=== PATIENT | male | born 1990 | race Hispanic/Latino ===

== ENCOUNTER 2018-03-05 04:11 | Inpatient (IN) | payer OTHER, SELFPAY ==
[2018-03-05] MEDS ORDERED: diphenhydrAMINE 50 MG/ML VIAL ONE (04:15)
[2018-03-05] MEDS ORDERED: Lorazepam 2 MG/ML VIAL SLOW IVP PRN (04:21)
[2018-03-05] MEDS ORDERED: Propofol BOLUS 1,000 MG/100 ML VIAL IV PRN (04:21)
[2018-03-05] MEDS ORDERED: DISCONTINUE PREVIOUS NARCOTIC PAIN MEDICATIONS AND BENZODIAZEPINES FS SCH (04:21)
[2018-03-05] MEDS ORDERED: fentaNYL Citrate/PF 2,000 MCG in Sodium Chloride 0.9% 60 ML IV SCH (04:21)
[2018-03-05] MEDS ORDERED: Fentanyl BOLUS 250 ML IVPB PRN (04:21)
[2018-03-05] MEDS ORDERED: Propofol 1,000 MG/100 ML VIAL IV PRN (04:21)
[2018-03-05 04:49] LABS: #Lymphocytes 1.1 thou/uL (1.20-3.40); #Monocytes 1.3 thou/uL (0.11-0.59); #Neutrophils 14.4 thou/uL (1.40-6.50); %Basophils 0.1 % (0.0-1.0); %Eosinophils 0.2 % (0.0-10.0); %Lymphocytes 6.7 % (21.0-51.0); %Monocytes 7.8 % (0.0-10.0); %Neutrophils 85.2 % (42.0-75.0); Hemoglobin 16.2 g/dL (14.0-18.0); Mean Corpuscular HGB CONC 34.5 g/dL (32.0-36.0); Mean Corpuscular Hemoglobin 31.4 pg (27.0-31.0); Mean Corpuscular Volume 91.1 fL (78.0-98.0); Mean Platelet Volume 6.9 fL (7.4-10.4); Platelet Count 218 thou/uL (130-400); RBC Distribution Width 11.8 % (11.5-14.5); Red Blood Cell (RBC) Count 5.16 mill/uL (4.70-6.10); White Blood Cell (WBC) Count 16.9 thou/uL (4.8-10.8)
[2018-03-05 04:53] LABS: ALT (SGPT) 178 U/L (8-55); AST (SGOT) 206 U/L (5-34); Albumin 4.7 g/dL (3.5-5.0); Alcohol 125 mg/dL (Less than 10); Alkaline Phosphatase 112 U/L (40-150); Anion Gap 17 mmol/L (10-20); BUN (Urea Nitrogen) 10 mg/dL (8.9-20.6); Bilirubin, Total 2.2 mg/dL (0.2-1.2); Calc. Creatinine Clearance 0 mL/min (70-130); Calcium 8.9 mg/dL (7.8-10.44); Carbon Dioxide 17 mmol/L (22-29); Chloride 105 mmol/L (98-107); Estimated GFR-MDRD 87; Globulin 2.5 g/dL (2.4-3.5); Glucose 126 mg/dL (70-105); INR-International Normal Ratio 1.1; Lipase 23 U/L (8-78); PTT 26.2 SEC (22.9-36.1); Potassium 3.4 mmol/L (3.5-5.1); Protein, Total 7.2 g/dL (6.0-8.3); Prothrombin Time 14.3 SEC (12.0-14.7); Sodium 136 mmol/L (136-145)
[2018-03-05 05:07] LABS: Actual Bicarbonate (HCO3a) 20.5 mEq/L (22-28); Base Excess (BEa) -6.4 mEq/L (-2.0 to +3.0); CO2 Tension 45.7 mmHg (35.0-45.0); O2 Tension (PaO2) 235.4 mmHg (80.0-100.0); pH, Arterial 7.27 (7.35-7.45)
[2018-03-05 05:08] LABS: Hematocrit-ABG 43.3 % (42.0-52.0); Hemoglobin (Hb) 15.1 g/dL (14.0-18.0)
[2018-03-05 05:09] LABS: Analyzer IN Cardio ER; Calcium, Ionized 1.2 mmol/L (1.12-1.30); Puncture Site RRA
[2018-03-05 05:10] LABS: ALV-art Gradient 420.475 (0-20)
[2018-03-05 05:15] LABS: Bilirubin Negative (Negative); Blood, Urine Large (Negative); Clarity CLOUDY (Clear); Glucose, Urine (Dipstick) Negative (Negative); Leukocyte Negative (Negative); Nitrite Negative (Negative); Protein, Urine (Dipstick) 100 mg/dL (Neg-Trace); Specific Gravity, Urine 1.019 (1.002-1.036); pH, Urine 5.5 (5.0-9.0)
[2018-03-05 05:18] LABS: Bacteria/HPF None Seen HPF (None Seen)
[2018-03-05] MEDS ORDERED: Adacel (T-DAP) 0.5 ML VIAL ONE (05:23)
[2018-03-05 05:49] LABS: Pathc Cast-AUWi Flag 10.32 (0-2.49); Yeast-AUWi Flag 62.9 (0-25.0)
[2018-03-05 06:03] LABS: RBC/HPF 21-50 HPF (0-3); Yeast-All Forms None Seen HPF (None Seen)
[2018-03-05 06:04] LABS: Renal Epithelial 0-3 HPF (0-3)
[2018-03-05 06:05] LABS: Other Casts/LPF 4-6 FINELY GRAN LPF (0-3 Hyaline)
[2018-03-05 06:16] VITALS: BMI 33.7
[2018-03-05] MEDS ORDERED: Dextrose 50% Abboject 50 ML SYRINGE SLOW IVP PRN (06:52)
[2018-03-05] MEDS ORDERED: Dextrose 5% in Water 1,000 ML IV PRN (06:52)
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
[2018-03-05 07:25] LABS: Actual Bicarbonate (HCO3a) 18.3 mEq/L (22-28); Base Excess (BEa) -7.2 mEq/L (-2.0 to +3.0); Hemoglobin (Hb) 15.5 g/dL (14.0-18.0); O2 Tension (PaO2) 114.8 mmHg (80.0-100.0); pH, Arterial 7.31 (7.35-7.45)
[2018-03-05 07:26] LABS: Calcium, Ionized 1.1 mmol/L (1.12-1.30); Puncture Site RRA
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
[2018-03-05 08:51] LABS: Magnesium 2.6 mg/dL (1.6-2.6); Phosphorus 4.6 mg/dL (2.3-4.7)
[2018-03-05] MEDS ORDERED: Lidocaine 1% (PF) 30 ML VIAL ONE (09:04)
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
[2018-03-05] MEDS: Sodium Chloride 0.9% 1,000 ML IV SCH ×3 (09:55→18:03)
[2018-03-05] MEDS: Famotidine/PF 20 mg/2ml Vial SLOW IVP SCH ×2 (09:56→21:06)
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
[2018-03-05] MEDS ORDERED: ISOVUE-370 76%-LOCM 1 ML ONE (13:05)
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
[2018-03-06] MEDS: Sodium Chloride 0.9% 1,000 ML IV SCH ×2 (03:43→15:43)
[2018-03-06] MEDS: Famotidine/PF 20 mg/2ml Vial SLOW IVP SCH ×2 (08:40→20:35)
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
[2018-03-06] MEDS: traMADol HCl 50 MG TAB PO SCH ×2 (12:23→17:39)
[2018-03-06] MEDS: Acetaminophen 500 MG TAB PO SCH ×2 (13:23→17:39)
[2018-03-06] MEDS: Ibuprofen 600 MG TAB PO SCH ×2 (14:00→20:50)
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
--- NOTE | 2018-03-06 19:51 | CT ---
CT RIGHT LOWER EXTREMITY 03/06/18 Multiple axial tomograms obtained through the right knee with multiplanar reconstruction. INDICATIONS: Tibial plateau fracture. FINDINGS: CT does confirm an impaction fracture involving the lateral aspect of the lateral tibial plateau. Mil d compression of the articular surface along the lateral margin of the lateral tibial plateau. No oth er fracture abnormality identified. Soft tissue windows do show evidence of small joint effusion/hemarthrosis. IMPRESSION: CT confirms mild impaction of the lateral aspect of the lateral tibial plateau. There is associated j oint effusion. POS: [facility]
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
[2018-03-07] MEDS: traMADol HCl 50 MG TAB PO SCH ×4 (00:10→18:26)
[2018-03-07] MEDS: Acetaminophen 500 MG TAB PO SCH ×4 (00:10→18:26)
[2018-03-07 05:32] LABS: Anion Gap 15 mmol/L (10-20); BUN (Urea Nitrogen) 12 mg/dL (8.9-20.6); Calc. Creatinine Clearance 224 mL/min (70-130); Carbon Dioxide 21 mmol/L (22-29); Chloride 106 mmol/L (98-107); Estimated GFR-MDRD Greater than 90; Glucose 78 mg/dL (70-105); Magnesium 2.7 mg/dL (1.6-2.6); Phosphorus 2.2 mg/dL (2.3-4.7); Potassium 3.9 mmol/L (3.5-5.1); Sodium 138 mmol/L (136-145)
[2018-03-07 05:51] LABS: Mean Corpuscular HGB CONC 35.6 g/dL (32.0-36.0); Mean Corpuscular Hemoglobin 32.2 pg (27.0-31.0); Mean Corpuscular Volume 90.5 fL (78.0-98.0); Mean Platelet Volume 7.4 fL (7.4-10.4); Platelet Count 148 thou/uL (130-400); RBC Distribution Width 11.4 % (11.5-14.5); Red Blood Cell (RBC) Count 4.05 mill/uL (4.70-6.10); White Blood Cell (WBC) Count 6.2 thou/uL (4.8-10.8)
[2018-03-07] MEDS: Ibuprofen 600 MG TAB PO SCH ×3 (06:07→22:58)
[2018-03-07] MEDS: Sodium Chloride 0.9% 1,000 ML IV SCH ×2 (06:07→18:26)
[2018-03-07 06:34] LABS: Band 8 % (5-11); Eosinophils 2 % (0-10); Lymphocytes 25 % (21-51); MDiff Complete? YES; Monocytes 2 % (0-10); Neutrophil 62 % (42-75); Reactive Lymphocytes 1 % (0-10)
[2018-03-07] MEDS: Famotidine/PF 20 mg/2ml Vial SLOW IVP SCH ×2 (08:58→21:50)
[2018-03-07] MEDS: Bacitracin Zinc Ointment 30 gm TUBE TOP SCH (09:00)
[2018-03-07] MEDS ORDERED: Potassium Phosphate 30 MMOL in Sodium Chloride 0.9% 250 ML 250 ML IVPB SCH (09:30)
[2018-03-07] MEDS: traMADol HCl 50 MG TAB PO PRN ×2 (10:10→19:26)
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
[2018-03-08] MEDS: Acetaminophen 500 MG TAB PO SCH ×4 (00:45→18:08)
[2018-03-08] MEDS: traMADol HCl 50 MG TAB PO SCH ×5 (00:45→19:27)
[2018-03-08 04:13] LABS: #Eosinphils 0.2 thou/uL (0.0-0.7); #Lymphocytes 1.3 thou/uL (1.20-3.40); #Monocytes 0.3 thou/uL (0.11-0.59); #Neutrophils 3.5 thou/uL (1.40-6.50); %Basophils 0.7 % (0.0-1.0); %Eosinophils 3.8 % (0.0-10.0); %Lymphocytes 24.7 % (21.0-51.0); %Monocytes 6.2 % (0.0-10.0); %Neutrophils 64.6 % (42.0-75.0); Hemoglobin 12.8 g/dL (14.0-18.0); Mean Corpuscular HGB CONC 35.4 g/dL (32.0-36.0); Mean Corpuscular Hemoglobin 31.9 pg (27.0-31.0); Mean Platelet Volume 7.7 fL (7.4-10.4); Platelet Count 184 thou/uL (130-400); RBC Distribution Width 11.4 % (11.5-14.5); Red Blood Cell (RBC) Count 4.02 mill/uL (4.70-6.10); White Blood Cell (WBC) Count 5.3 thou/uL (4.8-10.8)
[2018-03-08 04:25] LABS: Anion Gap 12 mmol/L (10-20); BUN (Urea Nitrogen) 12 mg/dL (8.9-20.6); Calc. Creatinine Clearance 224 mL/min (70-130); Calcium 9.4 mg/dL (7.8-10.44); Carbon Dioxide 24 mmol/L (22-29); Chloride 106 mmol/L (98-107); Estimated GFR-MDRD Greater than 90; Glucose 87 mg/dL (70-105); Magnesium 2.4 mg/dL (1.6-2.6); Phosphorus 3.6 mg/dL (2.3-4.7); Potassium 3.8 mmol/L (3.5-5.1); Sodium 138 mmol/L (136-145)
[2018-03-08] MEDS: Ibuprofen 600 MG TAB PO SCH ×3 (05:46→20:55)
[2018-03-08] MEDS ORDERED: Senokot 8.6 MG TAB PO PRN (09:44)
[2018-03-08] MEDS: Bacitracin Zinc Ointment 30 gm TUBE TOP SCH (10:56)
[2018-03-08] MEDS: Famotidine/PF 20 mg/2ml Vial SLOW IVP SCH ×2 (10:56→20:55)
[2018-03-08] MEDS: Sodium Chloride 0.9% 1,000 ML IV SCH (14:16)
[2018-03-08] MEDS: traMADol HCl 50 MG TAB PO PRN (20:56)
[2018-03-09] MEDS: Acetaminophen 500 MG TAB PO SCH ×5 (00:16→23:27)
[2018-03-09] MEDS: traMADol HCl 50 MG TAB PO SCH ×5 (00:16→23:27)
[2018-03-09] MEDS: Ibuprofen 600 MG TAB PO SCH ×3 (08:04→21:25)
[2018-03-09] MEDS ORDERED: Bisacodyl 10 MG SUPP PR SCH (08:45)
[2018-03-09] MEDS: Senokot 8.6 MG TAB PO SCH ×2 (09:49→20:21)
[2018-03-09] MEDS: Amantadine HCl 100 mg Capsule PO SCH (09:49)
[2018-03-09] MEDS: Polyethylene Glycol 3350 17 GM Packet PO SCH (09:50)
[2018-03-09] MEDS: Bacitracin Zinc Ointment 30 gm TUBE TOP SCH (09:50)
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
[2018-03-09] MEDS: traMADol HCl 50 MG TAB PO PRN (20:20)
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
[2018-03-10] MEDS: Acetaminophen 500 MG TAB PO SCH ×4 (05:53→23:29)
[2018-03-10] MEDS: Ibuprofen 600 MG TAB PO SCH ×3 (05:53→21:22)
[2018-03-10] MEDS: traMADol HCl 50 MG TAB PO SCH ×4 (06:11→23:29)
[2018-03-10] MEDS: Amantadine HCl 100 mg Capsule PO SCH (09:18)
[2018-03-10] MEDS: Bacitracin Zinc Ointment 30 gm TUBE TOP SCH (09:19)
[2018-03-10] MEDS: Senokot 8.6 MG TAB PO SCH ×2 (09:19→20:21)
[2018-03-10] MEDS: Polyethylene Glycol 3350 17 GM Packet PO SCH (09:19)
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
[2018-03-11] MEDS: Ibuprofen 600 MG TAB PO SCH ×2 (06:34→17:10)
[2018-03-11] MEDS: Acetaminophen 500 MG TAB PO SCH ×3 (06:34→17:09)
[2018-03-11] MEDS: traMADol HCl 50 MG TAB PO SCH ×3 (06:35→17:09)
[2018-03-11] MEDS: Senokot 8.6 MG TAB PO SCH (08:45)
[2018-03-11] MEDS: Amantadine HCl 100 mg Capsule PO SCH (08:45)
[2018-03-11] MEDS: Polyethylene Glycol 3350 17 GM Packet PO SCH (08:46)
[2018-03-11] MEDS: Bacitracin Zinc Ointment 30 gm TUBE TOP SCH (08:46)
[2018-03-11 15:33] VITALS: BP 106/72; TEMP 97.3
== END 2018-03-11 18:40 | disposition home or self-care (01) | DRG 82 ==
LOC: ERS 04:11 → CCU 05:23 → SURG A 03-08 11:48
PROVIDERS: ADMIT Surgery; ATTEND Surgery
PROC: 5A1935Z Respiratory Ventilation, Less than 24 Consecutive Hours (ICD-10-PCS; principal; 2018-03-05)
DX: S06.339A Contusion and laceration of cerebrum, unspecified, with loss of consciousness of unspecified duration, initial encounter (principal); J96.00 Acute respiratory failure, unspecified whether with hypoxia or hypercapnia; S82.141A Displaced bicondylar fracture of right tibia, initial encounter for closed fracture; S12.500A Unspecified displaced fracture of sixth cervical vertebra, initial encounter for closed fracture; S32.019A Unspecified fracture of first lumbar vertebra, initial encounter for closed fracture; S32.039A Unspecified fracture of third lumbar vertebra, initial encounter for closed fracture; S01.312A Laceration without foreign body of left ear, initial encounter; R40.2422 Glasgow coma scale score 9-12, at arrival to emergency department; S20.312A Abrasion of left front wall of thorax, initial encounter; S40.211A Abrasion of right shoulder, initial encounter; S30.811A Abrasion of abdominal wall, initial encounter; V43.52XA Car driver injured in collision with other type car in traffic accident, initial encounter; Y93.9 Activity, unspecified; Y92.9 Unspecified place or not applicable; Y99.9 Unspecified external cause status
CPT/HCPCS: 36415; 51702; 70450; 71045; 71260; 72125; 72170; 74177; 80048; 80053; 80307; 81003; 81015; 82805; 83690; 83735; 84100; 85007; 85025; 85027; 85610; 85730; 90471; 90715; 94002; 96365; 96375; 99292; G0390; G8978-GP-CM; G8979-GP-CJ; G8987-GO-CK; G8988-GO-CJ; G8996-GN-CK; G8997-GN-CH; G8997-GN-CI; G9168-GN-CM; G9169-GN-CK; J1200; J2001; J2704; J3010; J7050; L0172; S0028

== ENCOUNTER 2018-03-30 07:11 | Observation (INO) | payer OTHER, SELFPAY ==
[2018-03-30] MEDS ORDERED: Midazolam HCl 2 mg/2 ml Vial ONE (07:54)
[2018-03-30] MEDS ORDERED: Fentanyl 100 MCG/2 ML VIAL ONE (07:54)
[2018-03-30] MEDS ORDERED: CEFAZOLIN/Water 2 GM/20 ML SYRINGE ONE (09:39)
[2018-03-30] MEDS ORDERED: Ketorolac Tromethamine 30 MG/ML VIAL ONE (12:17)
[2018-03-30] MEDS ORDERED: Ondansetron HCl/PF 4 MG/2 ML Vial ONE (12:17)
[2018-03-30] MEDS ORDERED: PROPOFOL 200 MG/20 ML VIAL ONE (12:17)
[2018-03-30] MEDS ORDERED: Lidocaine 1% PF 5 ML VIAL ONE (12:17)
[2018-03-30] MEDS ORDERED: Milk Of Magnesia 30 ML UDCUP PO PRN (12:42)
[2018-03-30] MEDS ORDERED: Acetaminophen 500 MG TAB PO PRN (12:42)
[2018-03-30] MEDS ORDERED: Ondansetron HCl/PF 4 MG/2 ML Vial IVP PRN ×2 (12:42→13:05)
[2018-03-30] MEDS ORDERED: traMADol HCl 50 MG TAB PO PRN (12:42)
[2018-03-30] MEDS ORDERED: HYDROcodone/Acetaminophen 7.5/325 mg Tablet PO PRN (12:42)
[2018-03-30] MEDS ORDERED: Methocarbamol 500 MG TAB PO PRN (12:42)
[2018-03-30] MEDS ORDERED: diphenhydrAMINE 50 MG CAP PO PRN (12:42)
[2018-03-30] MEDS ORDERED: Bisacodyl 10 MG SUPP PR PRN (12:42)
[2018-03-30] MEDS ORDERED: Promethazine HCl 25 MG/ML VIAL SLOW IVP PRN (13:05)
[2018-03-30] MEDS ORDERED: Promethazine HCl 25 MG/ML VIAL IM PRN (13:05)
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
[2018-03-30] MEDS: Dextrose 5 %-0.45 % NaCl 1,000 ML IV SCH (14:22)
[2018-03-30] MEDS: HYDROcodone/Acetaminophen 7.5/325 mg Tablet PO PRN (14:42)
[2018-03-30] MEDS: CEFAZOLIN/Water 2 GM/20 ML SYRINGE SLOW IVP SCH (17:55)
[2018-03-30] MEDS: Ketorolac Tromethamine 30 MG/ML VIAL IVP SCH (17:56)
[2018-03-30] MEDS: Famotidine 20 MG TAB PO SCH (20:55)
[2018-03-31] MEDS: Ketorolac Tromethamine 30 MG/ML VIAL IVP SCH ×3 (00:35→11:51)
[2018-03-31] MEDS: CEFAZOLIN/Water 2 GM/20 ML SYRINGE SLOW IVP SCH (01:55)
[2018-03-31] MEDS: HYDROcodone/Acetaminophen 7.5/325 mg Tablet PO PRN (08:20)
[2018-03-31] MEDS: Famotidine 20 MG TAB PO SCH (08:57)
[2018-03-31] MEDS: Dextrose 5 %-0.45 % NaCl 1,000 ML IV SCH ×3 (09:01→11:52)
[2018-03-31] MEDS ORDERED: HYDROcodone/Acetaminophen 10/325 mg Tablet PO PRN (11:59)
[2018-03-31 12:40] VITALS: BP 115/72; TEMP 98.5
== END 2018-03-31 15:58 | disposition home or self-care (01) ==
LOC: SDC 07:11 → SJJU 13:25
PROVIDERS: ADMIT Orthopaedic Surgery; ATTEND Orthopaedic Surgery
PROC: 0MRN47Z Replacement of Right Knee Bursa and Ligament with Autologous Tissue Substitute, Percutaneous Endoscopic Approach (ICD-10-PCS; principal; 2018-03-30)
PROC: 0MRN4KZ Replacement of Right Knee Bursa and Ligament with Nonautologous Tissue Substitute, Percutaneous Endoscopic Approach (ICD-10-PCS; 2018-03-30)
PROC: 0MQN0ZZ Repair Right Knee Bursa and Ligament, Open Approach (ICD-10-PCS; 2018-03-30)
DX: S83.511A Sprain of anterior cruciate ligament of right knee, initial encounter (principal); S83.411A Sprain of medial collateral ligament of right knee, initial encounter; S83.8X1A Sprain of other specified parts of right knee, initial encounter; V89.2XXA Person injured in unspecified motor-vehicle accident, traffic, initial encounter
CPT/HCPCS: 96374; 96375; 96376; C1713; G0378; G8978-GP-CL; G8979-GP-CK; J1885; J2001; J2250; J2405; J2704; J3010